=== PATIENT | male | born 1955 | race Caucasian/White ===

== ENCOUNTER 2018-10-09 07:13 | Inpatient (IN) ==
--- NOTE | 2018-09-10 12:11 | Anesthesiology Consultation ---
Date of Service September 10, 2018 Assessment & Plan (1) Encounter for pre-operative examination: - Cardio: 10/01/18: S/P "negative" stress test. "No cardiac contraindication to proceeding on with the planned total left knee replacement. 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 Chart Review Chart Review: Acceptable Risk for Surgery and Patient seen in Pre Admission Testing Teaching & Discussion Pre-Anesthesia Teaching/Discussion Notes: Instructed NPO after midnight before surgery,except medications with 15 cc of water. Medication instructions provided according to the PAT guidelines. History Surgery Operation Date: 10/09/18 09:20 Proposed Procedures p Left Total Knee Arthroplasty - Kashmir Viera MD Height/Weight Height: 5 ft 11 in Weight: 136.1 kg Allergies Allergy/AdvReac Type Severity Reaction Status Date / Time No Known Drug Allergies Allergy Verified 09/02/18 14:07 Medications Home Medications Medication Instructions Recorded Confirmed Last Taken aspirin [Aspir-81] 81 mg PO DAILY 02/18/18 09/02/18 09/02/18 cetirizine [Zyrtec] 10 mg PO QAM 02/18/18 09/02/18 09/02/18 cholecalciferol (vitamin D3) 2,000 unit PO QAM 02/18/18 09/02/18 09/02/18 [Vitamin D3] clopidogrel [Plavix] 75 mg PO QAM 02/18/18 09/02/18 09/02/18 coQ10 (ubiquinol) 200 mg PO BID 02/18/18 09/02/18 09/02/18 docusate sodium [Stool Softener] 100 mg PO DAILY PRN 02/18/18 09/02/18 1 Week Ago ~02/27/18 glipizide 10 mg PO BID 02/18/18 09/02/18 09/02/18 magnesium oxide 500 mg PO QAM 02/18/18 09/02/18 09/02/18 metformin 1,000 mg PO BID 02/18/18 09/02/18 09/02/18 metoprolol succinate 50 mg PO QAM 02/18/18 09/02/18 09/02/18 omega 1-wom-hvj-fish oil [Fish Oil] 1 tab PO BID 02/18/18 09/02/18 09/02/18 saxagliptin 5 mg PO QAM 02/18/18 09/02/18 09/02/18 simvastatin 40 mg PO QPM 02/18/18 09/02/18 09/01/18 tizanidine 4 mg PO QPM PRN 02/18/18 09/02/18 09/01/18 vitamin B complex-folic acid 1 tab PO QAM 02/18/18 09/02/18 09/02/18 [Super B Maxi Complex] gabapentin 300 mg PO HS 09/02/18 09/02/18 09/01/18 guaifenesin 2 tab PO QAM 09/02/18 09/02/18 09/02/18 hydrochlorothiazide 25 mg PO QAM 09/02/18 09/02/18 09/02/18 lisinopril 40 mg PO QAM 09/02/18 09/02/18 09/02/18 Past Medical History Medical History CAD (coronary artery disease) STENTS X 6 TOTAL; MOST RECENT 02/2017 Diabetes mellitus, type 2 NIDDM Fatty liver Gout Hearing deficit BILAT HEARING AIDES Hyperlipidemia Hypertension Irritable bowel disease Kidney stone Morbid obesity Neuropathy Osteoarthritis Sleep apnea BIPAP 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 Past Surgical History Surgical History History of arthroscopy LEFT KNEE X 2 RT KNEE X 1 History of arthroscopy of right knee History of cardiac cath MULTIPLE; CARDIAC STENTS X 6 TOTAL; MOST RECENT STENT 02/2017 History of cardiac radiofrequency ablation 2006 History of carpal tunnel release RT/LEFT History of colonoscopy History of endoscopic sinus surgery History of tooth extraction Lipoma of back Trigger finger S/P REPAIRS Past Anesthesia History No Family Hx of Anesthesia Complications and Other Patient reports "slow to wake" x 1 episode with right knee surgery in ; no issues with subsequent surgeries/anesthesia. History of PONV No Motion Sickness Screening History of Motion Sickness: No Social History Smoking Status: Former smoker tobacco type: cigarettes and cigars Do You Dip or Chew Tobacco: No Smoking End Date: SOCIAL USE 40+ YEARS AGO Alcohol type: beer Alcohol Intake Frequency Comment: PRIOR WEEKLY USE BUT PATIENT HAS HAD NO ETOH SINCE 05/2018* Hx Substance Use: No substance use type: does not use Exercise / Class Metabolic Activity III < 4 Walking/Shop/Light housework (USES CANE PRN) Review of Systems Patient denies chest pain, shortness of breath, cough, wheezing, palpitations. Physical Exam Vital Signs VITALS BP 135/85 P 78 TEMP 97.9 SP02 97%RA RESP 18 PHYSICAL Full neck and c-spine range of motion. Full TMJ range of motion. 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 Low voltage QRS. Septal infarct (No significant change compared to 01/2017 per cardio*) Chest X-Ray Date: 10/11/17 Findings: + NAD Echocardiogram Date: 09/04/17 EF 55%. No RWMA. LAE. LVH. Sclerotic AV/MV. Mild MT/TI. Stress Test Date: 10/01/18 Type: nuclear (Lexiscan) Normal myocardial perfusion SPECT images without evidence for pharmacologically induced ischemia. LVEF 55%. Cardiac Catheterization Date: 02/23/17 Severe instent restenosis of diagonal branch of LAD. Patent LAD/RPDA stents. LVEF 55%. LAISHA to LAD placed Laboratory Results Blood Type A Positive 09/10/18 12:26 Antibody Screen NEGATIVE 09/10/18 12:26 PT 10.9 Seconds (9.0-12.0) 09/10/18 12:26 INR 1.1 (0.9-1.1) 09/10/18 12:26 APTT 25.2 Seconds (21.0-31.0) 09/10/18 12:26 Urine Color Yellow 09/10/18 Unknown Urine Appearance Clear (Clear) 09/10/18 Unknown Urine pH 5.5 (4.5-7.5) 09/10/18 Unknown Ur Specific [place] 1.011 (1.000-1.030) 09/10/18 Unknown Urine Protein Negative (Negative) 09/10/18 Unknown Urine Glucose (UA) Negative (Negative) 09/10/18 Unknown Urine Ketones Negative (Negative) 09/10/18 Unknown Urine Nitrite Negative (Negative) 09/10/18 Unknown Ur Leukocyte Esterase Negative (Negative) 09/10/18 Unknown 09/02/18 WBC 6.7 H/H 14.8/43.2 PLATELETS 215 SODIUM 138 POTASSIUM 4.2 CHLORIDE 104 CO2 25 BUN 11 CREATININE 0.9 GLUCOSE 156 HGBA1C 7.2%
--- NOTE | 2018-09-10 12:28 | PAT Medication Instructions ---
Medication Instructions Date of Service September 10, 2018 Home Medications aspirin [Aspir-81] 81 mg PO DAILY cetirizine [Zyrtec] 10 mg PO QAM cholecalciferol (vitamin D3) 2,000 unit PO QAM clopidogrel [Plavix] 75 mg PO QAM coQ10 (ubiquinol) 200 mg PO BID docusate sodium [Stool Softener] 100 mg PO DAILY PRN glipizide 10 mg PO BID magnesium oxide 500 mg PO QAM metformin 1,000 mg PO BID metoprolol succinate 50 mg PO QAM omega 3-wcb-fog-fish oil [Fish Oil] 1 tab PO BID saxagliptin 5 mg PO QAM simvastatin 40 mg PO QPM tizanidine 4 mg PO QPM PRN vitamin B complex-folic acid 1 tab PO QAM gabapentin 300 mg PO HS guaifenesin 2 tab PO QAM hydrochlorothiazide 25 mg PO QAM lisinopril 40 mg PO QAM ASK your prescriber and surgeon clopidogrel [Plavix] 75 mg PO QAM (in order for spinal anesthesia, will need to hold Plavix 7 days prior to surgery for spinal anesthesia; please check if this is okay with repair servicer) STOP taking 2 weeks before surgery (or as soon as possible if surgery is within 2 weeks) coQ10 (ubiquinol) 200 mg PO BID omega 4-loh-biv-fish oil [Fish Oil] 1 tab PO BID DO NOT take the morning of surgery cetirizine [Zyrtec] 10 mg PO QAM cholecalciferol (vitamin D3) 2,000 unit PO QAM docusate sodium [Stool Softener] 100 mg PO DAILY PRN glipizide 10 mg PO BID magnesium oxide 500 mg PO QAM metformin 1,000 mg PO BID saxagliptin 5 mg PO QAM vitamin B complex-folic acid 1 tab PO QAM guaifenesin 2 tab PO QAM hydrochlorothiazide 25 mg PO QAM lisinopril 40 mg PO QAM Take morning of surgery With a small sip of water, OTHERWISE NOTHING TO EAT OR DRINK AFTER MIDNIGHT: aspirin [Aspir-81] 81 mg PO DAILY metoprolol succinate 50 mg PO QAM Take evening before surgery docusate sodium [Stool Softener] 100 mg PO DAILY PRN (if needed) glipizide 10 mg PO BID metformin 1,000 mg PO BID simvastatin 40 mg PO QPM tizanidine 4 mg PO QPM PRN (if needed) gabapentin 300 mg PO HS Other Notes If you have any questions please call us at [phone] or [phone] or [phone] or [phone]
[2018-09-10 15:00] LABS: INR 1.1 (0.9-1.1); Partial Thromboplastin Ratio 0.9; Partial Thromboplastin Time 25.2 Seconds (21.0-31.0); Prothrombin Time 10.9 Seconds (9.0-12.0)
[2018-09-10 15:16] LABS: Appearance Urine Clear (Clear); Bilirubin Urine Negative (Negative); Blood Urine Negative (Negative); Color Urine Yellow; Glucose Urine UA Negative (Negative); Ketones Urine Negative (Negative); Leukocyte Esterase Urine Negative (Negative); Nitrite Urine Negative (Negative); Protein Urine Negative (Negative); Specific Gravity Urine 1.011 (1.000-1.030); Urobilinogen Urine Negative (Negative); pH Urine 5.5 (4.5-7.5)
--- NOTE | 2018-10-08 15:06 | History and Physical Report ---
DATE OF ADMISSION: 10/09/2018 CHIEF COMPLAINT: Chronic left knee pain. HISTORY OF PRESENT ILLNESS: This is a 63-year-old male patient of Dr. Viera'evelio complaining of chronic left knee pain, longstanding, now progressively getting worse. The patient has failed conservative treatment including intraarticular injections, the use of anti-inflammatories, the use of bracing, the use of a cane and the use of gabapentin. The patient has increased pain with weightbearing activities and his pain does interfere with his activities of daily living. The patient has been diagnosed with end-stage osteoarthritis per clinical and radiographic exams and wishes to proceed with a left total knee arthroplasty. PAST MEDICAL HISTORY: Hypertension, coronary artery disease, sleep apnea with the use of CPAP, diabetes mellitus, osteoarthritis, spine problems, neck problems, upper back problems, sciatica, obesity, kidney stones, fatty liver disease. SOCIAL HISTORY: Nonsmoker, nondrinker. PAST SURGICAL HISTORY: Right knee surgery and left knee surgery. FAMILY HISTORY: Noncontributory. REVIEW OF SYSTEMS: Chronic left knee pain; otherwise, denies any shortness of breath, chest pain, nausea, vomiting or any other joint complaints. MEDICATIONS: 1. Aspirin 81 mg daily. 2. Plavix 75 mg daily. 3. Saxagliptin 5 mg daily. 4. Guaifenesin 400 mg twice a day. 5. Glipizide 7.5 mg twice a day. 6. Metformin 1000 mg twice a day. 7. Magnesium 500 mg daily. 8. CoQ enzyme 200 mg twice daily. 9. Cetirizine 10 mg daily. 10. Fish oil 1000 mg twice daily. 11. Super B complex daily. 12. Metoprolol 50 mg daily. 13. Lisinopril 30 mg daily. 14. Vitamin D3 2000 international units daily. 15. Simvastatin 40 mg daily. 16. Tizanidine 2-4 mg daily as needed. 17. Hydrochlorothiazide 25 mg daily. 18. Gabapentin 300 mg daily. ALLERGIES: No known drug allergies. PHYSICAL EXAMINATION: GENERAL: Well-developed, well-nourished 63-year-old male in no acute distress. He is alert and oriented x3 and pleasant. HEENT: Normocephalic, atraumatic. Extraocular motions are intact. Pupils are equal, reactive to light. HEART: Regular rate and rhythm, no murmurs. LUNGS: Clear. ABDOMEN: Soft, nontender, bowel sounds present. EXTREMITIES: Left knee has a mild effusion. Limited range of motion of 0-115 with crepitation. The patient has a neutral alignment with a mild effusion. 5/5 strength. NEUROLOGIC: Neurovascularly, he is intact in his left lower extremity. DIAGNOSES: Left knee end-stage osteoarthritis, hypertension, coronary artery disease, sleep apnea with the use of CPAP, diabetes mellitus, osteoarthritis, spine problems, neck problems, upper back problems, sciatica, obesity, kidney stones and fatty liver disease. PLAN: The patient was advised of his diagnosis. Indications, risks, benefits, postop course have all been reviewed. The patient wished to proceed with a left total knee arthroplasty. Necessary consent forms and preoperative testing and clearances will be obtained.
[~2018-10-09 07:13] MED LIST: ACETAMINOPHEN 500 MG TAB PO SCH; BUPIVACAINE 0.5 % 5 MG/1 ML PF 10ML VIAL ONE; BUPIVACAINE LIPOSOME/PF 266 MG, BUPIVACAINE/EPINEPHRINE 50 ML, SODIUM CHLORIDE 0.9% 30 ... INFIL SCH; CEFAZOLIN 3000MG 65 ML IV SCH; CeleBREX 200 MG CAP PO SCH; FAMOTIDINE 20 MG TAB PO SCH; GABAPENTIN 300 MG PO SCH; LR 500ML BOLUS, THEN 15ML/HR IV SCH; ROPIVACAINE 0.5% 5 MG/ML 30 ML VIAL ONE; ROPIVACAINE 0.5% HCL/PF 150 MG, BUPIVACAINE 0.5% MPF 30 ML, EPINEPHrine 30MG/30ML (OR U... INFIL SCH; dexAMETHasone 4 MG TAB PO SCH
[2018-10-09] MEDS ORDERED: fentaNYL citrate 100 MCG/2 ML VIAL ONE (07:53)
[2018-10-09] MEDS ORDERED: PROPOFOL IV EMULSION 10 MG/ML 20 ML VIAL IV ONE (07:53)
[2018-10-09] MEDS ORDERED: MIDAZOLAM HCL 1 MG/ML 2ML VIAL ONE (07:53)
[2018-10-09] MEDS ORDERED: ePHEDrine sulfate 50 MG/ML AMP IV PRN (09:07)
[2018-10-09] MEDS ORDERED: ATROPINE SULFATE 0.1 MG/ML 10ML SYR IV PRN (09:07)
[2018-10-09] MEDS ORDERED: fentaNYL citrate 100 MCG/2 ML VIAL IV PRN (09:07)
[2018-10-09] MEDS ORDERED: ONDANSETRON INJ 2 MG/ML 2 ML VIAL IV PRN ×2 (09:07→13:44)
--- NOTE | 2018-10-09 09:11 | History & Physical Bridge Note ---
Date of Service October 09, 2018 History & Physical Bridge Note I have examined the patient, reviewed the History & Physical and in the interval since the performance of the History & Physical I have noted the following changes of clinical significance: no changes noted
[2018-10-09] MEDS ORDERED: POVIDONE-IODINE OP SOLN 30 ML BTL ONE (09:20)
[2018-10-09] MEDS ORDERED: BACITRACIN INJ 50,000 UNIT VIAL ONE (09:20)
[2018-10-09] MEDS ORDERED: ORTHO JOINT ANESTHETIC ONE (09:20)
[2018-10-09] MEDS ORDERED: ONDANSETRON INJ 2 MG/ML 2 ML VIAL ONE (10:49)
--- NOTE | 2018-10-09 11:57 | Post Operative Brief Note ---
Immediate Post Op Note v1 Date of Surgery October 09, 2018 Pre & Post Diagnosis Operation Date: 10/09/18 09:20 Pre-Op Diagnosis: LEFT KNEE OSTEOARTHRITIS Post-Op Diagnosis: LEFT KNEE OSTEOARTHRITIS Procedure Operation Date: 10/09/18 09:20 Actual Procedures p Left Total Knee Arthroplasty(Left) - Kashmir Viera MD Surgeon Kashmir Viera MD Foster Winder Brian TURNER Estimated Blood Loss 5 Findings Consistent with Post-Op Diagnosis Specimens Bone cuts Drains Hemovac Drain Anesthesia Type General Regional Complications none Disposition Accompanied Patient To Recovery: No Disposition: Recovery Room Overlapping Procedure I was present for: the critical portions of procedure.
--- NOTE | 2018-10-09 12:18 | Operative Report ---
Post Operative Report Pre & Post Diagnosis Operation Date: 10/09/18 09:20 Pre-Op Diagnosis: LEFT KNEE OSTEOARTHRITIS Post-Op Diagnosis: LEFT KNEE OSTEOARTHRITIS Procedure Operation Date: 10/09/18 09:20 Actual Procedures p Left Total Knee Arthroplasty(Left) - Kashmir Viera MD Surgeon Kashmir Viera MD Machine Cell Tuber Brian TURNER Estimated Blood Loss 5 Findings Consistent with Post-Op Diagnosis Specimens Bone cuts Drains 2 Hemovac Anesthesia Type General Complications none Disposition Accompanied Patient To Recovery: No Disposition: Recovery Room Indications 63-year-old male with chronic left knee pain failed conservative management including injections ,bracing,therapy, knee arthroscopy. At the time of knee arthroscopy was noted that he had grade 4 DJD of the central lateral patella and grade 4 DJD of the lateral femoral condyle so he is [id number] in flexion. Description of Procedure Patient taken to the operating room placed supine on the operating table and anesthetized under spinal anesthesia initially the patient felt like he was short of breath and although he was oxygenating satisfactorily it was decided because he was anxious to place an LMA and placement of general anesthesia.. Exam under anesthesia demonstrated patellofemoral crepitation full range of motion. Patient had a lateral patellar tilt and a tight lateral retinaculum A pneumatic tourniquet was placed about the thigh of the left lower extremity. The left lower extremity was prepped and draped in usual fashion. Leg was elevated exsanguinated with an Esmarch bandage and the pneumatic was raised to 350 mm mercury. An anterior incision was made across the left knee. The skin was incised longitudinally subcutaneous flaps were elevated and an incision was made through the medial retinaculum extending up into the mid third of the quadriceps tendon and extended down to the medial tibial tubercle. Intra- articular findings demonstrated grade 4 patellofemoral DJD large grade 4 lesion central patella with a large grade 4 lesion on the lateral femoral condyle lateral aspect toward the flexion surface of the knee in the patellofemoral trochlear groove. The knee was exposed by excising the infrapatellar fat pad, excising the meniscal remnants and cruciate ligaments or remnants of the ligaments. Any inflamed synovial tissue was resected. The fat pad over the anterior femur was resected for placement of the component in that area. The lateral synovial bands were release. Appropriate releases were performed to balance ligaments. The femur was exposed. The custom femoral cutting block was pinned in position. The distal femoral cutting block was applied. The distal femoral cut was made with the oscillating saw. The size 11 4-in-1 cutting block was placed. The anterior and posterior chamfer cuts were made. The knee was extended and a subperiosteal peel lateral release was performed around the patella. The patella width was measured and width was reproduced using freehand cut technique. The 38 millimeter symmetrical patella was used. 3 drill holes are made for the pegs. The tibia was exposed. A custom tibial cutting block was positioned and drill holes were made for the cutting guide. It was felt that the PSI guide did not reproduce patient's posterior slope satisfactorily and was in slight varus so an external tibial cutting guide was placed and the proximal cut was made with the oscillating saw. All osteophytes were resected. The lamina robotics technologist was used to assess ligamentous balance and the ligaments were balanced in extension and flexion. The tibia was reexposed and measured for a size G tibial component. This was externally rotated in line with the tibial tubercle and the fixation pins were drilled. The proximal tibia was fashioned with the drill and punch. The size 11 CR femoral trial was inserted. The trial MC inserts were used. The 11 mm insert gave balanced ligaments through full range of motion. The patella tracked laterally so I had to do a formal lateral release leaving the synovium intact which allowed the patella tracked completely centrally. the trials were removed. The orthomix anesthetic cocktail was injected per protocol. The knee was then copiously irrigated with pulsatile lavage antibiotic solution with bacitracin. The final components were cemented with Simplex cement. The final components were Josette persona left CR size 11 standard femur, G tibia, MC 11 mm polyethylene insert. 38 x 9.5 mm patella symmetrical. While the cement cured with the knee in full extension the Betadine soak was used per protocol. After the cement cured, the knee joint was copiously irrigated with antibiotic solution with bacitracin. 2 drains were brought out laterally and connected to a Hemovac. The quadriceps tendon and medial retinaculum were closed with interrupted [id number] #1 Vicryl sutures. The knee was taken through a full range of motion and repair was secure. The subcutaneous tissues were closed with 2-0 Vicryl sutures and skin was closed with jose. Sterile dressings were applied and the patient tolerated the procedure well. Brian TURNER my physician accounting administrative assistant, assisted in soft tissue retraction instrument management leg positioning the closure and will participate in the postoperative care of the patient. I attest to the content of the Intraoperative Record and any orders documented therein. Any exceptions are noted below.
--- NOTE | 2018-10-09 13:07 | Anesthesiology Progress Note ---
Date of Service October 09, 2018 Anesthesia Post Procedure Vital Signs Vital Signs: Temp Pulse Resp BP Pulse Ox 10/09/18 13:00 81 18 140/73 97 10/09/18 12:50 78 18 145/66 H 96 10/09/18 12:40 70 18 141/73 H 98 10/09/18 12:30 91 H 18 116/81 98 10/09/18 12:23 36.3 C L 93 H 18 144/81 H 98 10/09/18 08:02 36.8 C 62 20 163/92 H 98 Pain Intensity Left Shoulder: Pain Intensity: 5 Left Knee: Pain Intensity: 5 Transfer of Care Handoff Completed per policy Notes Mental Status: alert / awake / arousable and participated in evaluation Patient Amnestic to Procedure: Yes Nausea / Vomiting: adequately controlled Pain: adequately controlled Airway Patency, RR, SpO2: stable & adequate BP & HR: stable & adequate Hydration State: stable & adequate Neuraxial Anesthesia: was administered and sensory block is resolving Anesthetic Complications: no major complications apparent and Pt Satisfied with anesthetic care Notes: BG high in PACU, but patient is insulin naive (normally on metformin and glipizide). Hospitalist is consulted to assist with medical management of patient on floor. Will hold off on starting insulin and allow hospitalist to assess the patient first.
[2018-10-09] MEDS ORDERED: NALOXONE HCL 0.4 MG/1 ML VIAL/CARP IV PRN (13:44)
[2018-10-09] MEDS ORDERED: HYDROmorphone INJ 0.5 MG/0.5 ML SYR IV PRN (13:44)
[2018-10-09] MEDS ORDERED: BISACODYL 10 MG SUPP PR PRN (13:44)
[2018-10-09] MEDS ORDERED: SODIUM CHLORIDE 0.9% 1000ML 1,000 ML IV SCH (13:44)
[2018-10-09] MEDS ORDERED: OXYCODONE HCL IR 5 MG TAB (IMMEDIATE RELEASE) PO PRN (13:44)
[2018-10-09] MEDS ORDERED: NON-FORMULARY MEDICATION (Docusate Sodium [Stool Softener] 100 MG) PO PRN (13:44)
[2018-10-09] MEDS ORDERED: TIZANIDINE HCL 4 MG TABLET PO PRN (13:44)
[2018-10-09] MEDS ORDERED: MAGNESIUM HYDROXIDE SUSP 30 ML UDC PO PRN (13:44)
--- NOTE | 2018-10-09 14:05 | XRay Report ---
LEFT KNEE 2 VIEWS History: Left total knee arthroplasty. Degenerative arthritis. Postop. FINDINGS: The patient is status post a left total knee arthroplasty. The hardware is intact. No fract ure or dislocation. Skin jose and surgical drains are in place. IMPRESSION: Left total knee arthroplasty. No evidence for hardware complication. Electronically signed by: Demarcus Burgos M.D. 10/09/2018 2:03 PM
[2018-10-09] MEDS ORDERED: PHARMACY GLYCEMIC MGMT CONSULT PRN (14:11)
[2018-10-09] MEDS ORDERED: CARBOHYDRATES FOR HYPOGLYCEMIA PO PRN (14:30)
[2018-10-09] MEDS ORDERED: DEXTROSE 50% 50 ML SYRINGE IV PRN (14:30)
[2018-10-09] MEDS ORDERED: GLUCOSE 40% GEL 15 GM TUBE PO PRN (14:30)
[2018-10-09] MEDS ORDERED: GLUCOSE 10 TABS/TUBE PO PRN (14:30)
[2018-10-09] MEDS ORDERED: INSULIN HUMAN NPH SC ONE (14:30)
[2018-10-09] MEDS ORDERED: GLUCAGON FOR INJ 1 MG VIAL IM PRN (14:30)
--- NOTE | 2018-10-09 14:35 | Pharmacy Report ---
Glycemic Control Consultation - Date of Service October 09, 2018 - Scope Scope: Glycemic Pharmacist consulted by Dr Sowmya Walls PACarolinaC on 10/09/18 for glycemic control and to write orders per [facility] inpatient glycemic control protocol - Objective Weight: 135.8 kg Accuchecks BSG (last 24hrs): 10/09/18 10/09/18 08:27 12:28 POC Glucose 124 H 200 H HbA1c: None in EMR - Recent Pertinent Medications Outpatient Anti-diabetic Regimen: * Glipizide 10mg PO BIDM * Metformin 1,000mg PO BIDM * Saxagliptin 5mg PO QAM Risk Factors for Insulin Resistance: * Steroids: Dexamethasone 8mg PO Preop x 1 * Recent Surgery * Diet - Assessment & Plan Assessment & Plan: ASSESSMENT: * 63yo T2DM male with unknown degree of outpatient control * Pt is maintained on oral antidiabetic agents as an outpatient * Oral agents are not recommended for inpatient use d/t drug interactions, changing PO intake, and difficulty titrating for acute hyper/hypoglycemia. ADA recommends re-initiating outpatient oral agents 1-2 days prior to discharge if/when appropriate if they were held on admission. * Will hold oral agents for admission and utilize SQ basal bolus insulin regimen which is the recommended regimen for inpatient glycemic control. * Will initiate weight based insulin dosing for insulin ubaldo patient and titrate based on BSG trends. * Will start with moderate/severe stress for high dose steroids given preop and adjust dosing based on BSG trends * Goal is to maintain BSGs <200 mg/dl (ideally <150 mg/dl) to prevent post-op infectious complications PLAN FOR INPATIENT GLYCEMIC CONTROL: * Holding outpatient oral diabetes medications * Basal insulin * NPH 30 units SQ x 1 now (~0.3 units/kg Adj BW since we are giving insulin late) * Then, NPH BID based on BSG * BSG below 140 mg/dl --> 12 units * BSG 140-180mg/dl --> 23 units * BSG above 180 mg/dl --> 34 units * Bolus insulin * NovoLog per scale ACHS or Q6hrs while NPO * Goal Range: Low 110 mg/dL - High 140 mg/dL * Correction Factor: 15 mg/dL/unit * Nutritional / Prandial insulin per carb ratio of 1 unit per 5 grams CHO consumed * A1c with AM labs 10/10/18 * Please note that the plan above was derived based on current level of insulin resistance and hospital stress. These recommendations are appropriate for inpatient admission only. Plan of care upon discharge will need to be reassessed to avoid potential outpatient hypo/hyperglycemia. Thank you.
[2018-10-09] MEDS: INSULIN ASPART 100 UNITS/ML 3 ML PEN SC SCH ×4 (15:30→23:36)
--- NOTE | 2018-10-09 17:33 | Consultation ---
Date of Consultation October 09, 2018 Assessment & Plan (1) Status post total left knee replacement: management per ortho including DVT proph, dispo, pain control. agree w/ repeat labs in AM for stability. Present on Admission?: Yes (2) Morbid obesity with BMI of 40.0-44.9, adult: BMI 41.8 Present on Admission?: Yes (3) Essential (primary) hypertension: While awaiting AM labs would hold HCTZ and lisinopril. If Cr is stable in AM resume meds. Present on Admission?: Yes (4) DM w/o complication type II: Pharmacy has been consulted for management. Appreciate their assistance. Present on Admission?: Yes (5) CAD (coronary artery disease): continue asa, plavix, statin, and beta peterson. no ischemic symptoms post-op. Present on Admission?: Yes (6) Hyperlipidemia: cont statin. Present on Admission?: Yes (7) DVT prophylaxis: defer to orthopedics (8) ESE (obstructive sleep apnea): continue home BIPAP. Thank you for the consult. Will follow with you. Present on Admission?: Yes History of Present Illness Requesting Physician: Kashmir Viera MD Reason for Consultation: post-operative medical management Attending Physician: Kashmir Viera MD History of Present Illness 63yo male with CAD s/p 6 stents, morbid obesity with BMI 41, T2DM, multiple sites of OA, ESE and HTN who presented today for elective left TKR by Dr. Viera. I saw the patient post-op on the orthopedic floor and he was resting comfortably. He denied any cp, dyspnea, abd pain, nausea, or emesis. He has had NO ischemic symptoms that remind him of prior CAD symptoms. Allergies Allergy/AdvReac Type Severity Reaction Status Date / Time No Known Drug Allergies Allergy Verified 09/02/18 14:07 Home Medications Home Medications Medication Instructions Recorded Confirmed Type aspirin [Aspir-81] 81 mg PO DAILY 02/18/18 10/09/18 History cetirizine [Zyrtec] 10 mg PO QAM 02/18/18 10/09/18 History cholecalciferol (vitamin D3) 2,000 unit PO QAM 02/18/18 10/09/18 History [Vitamin D3] clopidogrel [Plavix] 75 mg PO QAM 02/18/18 10/09/18 History coQ10 (ubiquinol) 200 mg PO BID 02/18/18 10/09/18 History docusate sodium [Stool Softener] 100 mg PO DAILY PRN 02/18/18 10/09/18 History glipizide 10 mg PO BID 02/18/18 10/09/18 History magnesium oxide 500 mg PO QAM 02/18/18 10/09/18 History metformin 1,000 mg PO BID 02/18/18 10/09/18 History metoprolol succinate 50 mg PO QAM 02/18/18 10/09/18 History omega 3-dnp-mxa-fish oil [Fish Oil] 1 tab PO BID 02/18/18 10/09/18 History saxagliptin 5 mg PO QAM 02/18/18 10/09/18 History simvastatin 40 mg PO QPM 02/18/18 10/09/18 History tizanidine 4 mg PO QPM PRN 02/18/18 10/09/18 History vitamin B complex-folic acid 1 tab PO QAM 02/18/18 10/09/18 History [Super B Maxi Complex] gabapentin 300 mg PO HS 09/02/18 10/09/18 History guaifenesin 2 tab PO QAM 09/02/18 10/09/18 History hydrochlorothiazide 25 mg PO QAM 09/02/18 10/09/18 History lisinopril 40 mg PO QAM 09/02/18 10/09/18 History Patient History Medical History CAD (coronary artery disease) STENTS X 6 TOTAL; MOST RECENT 02/2017 Diabetes mellitus, type 2 NIDDM Fatty liver Gout Hearing deficit BILAT HEARING AIDES Hyperlipidemia Hypertension Irritable bowel disease Kidney stone Morbid obesity Neuropathy Osteoarthritis Sleep apnea 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 S/P CARDIAC ABLATION (2005) Surgical History History of arthroscopy LEFT KNEE X 2 RT KNEE X 1 History of arthroscopy of right knee History of cardiac cath MULTIPLE; CARDIAC STENTS X 6 TOTAL; MOST RECENT STENT 02/2017 History of cardiac radiofrequency ablation 2006 History of carpal tunnel release RT/LEFT History of colonoscopy History of endoscopic sinus surgery History of tooth extraction Lipoma of back Trigger finger S/P REPAIRS Family History Mother Family history of diabetes mellitus Coronary heart disease Father Coronary heart disease Brother Diabetes ESRD (end stage renal disease) from such Brother Coronary heart disease s/p CABG Social History Preferred Language: [place] Communication Ability: Effective Communication Ability Comment: [place] WITHOUT AIDES Registered Mail Clerk Required: No Beliefs That Will Affect Care: Holiness Holiness Beliefs: JUDAISM marital status: Current Living Situation: Spouse current occupational status: retired current occupation: retired from [employer] Other Information That Helps Us Care for You: No Feels Safe at Home: Yes Smoking Status: Former smoker Tobacco Type: cigarettes and cigars Do You Dip or Chew Tobacco: No Smoking End Date: SOCIAL USE 40+ YEARS AGO Second Hand Exposure: No Hx Alcohol Use: No Hx Substance Use: No Review of Systems Constitutional: no fever, no chills, no fatigue, no anorexia and no weight loss Eyes: no worsening vision Ear, Nose, Mouth, Throat: no sore throat and no dysphagia Respiratory: no cough and no dyspnea Cardiovascular: + edema; no chest pain, no orthopnea and no paroxysmal nocturnal dyspnea Gastrointestinal: no abdominal pain, no nausea and no vomiting Genitourinary: no dysuria Musculoskeletal: + joint pain Integumentary: no rash Neurologic: no localized weakness Psychiatric: no depression and no anxiety Endocrine: recent sugars have been high Physical Exam Constitutional: well developed, well nourished and + morbidly obese; no acute distress and not ill appearing Eyes: PERRL ENMT: external ear and nose normal, oropharynx normal Neck: trachea midline, no thyromegaly Respiratory: normal respiratory effort, lungs clear to auscultation Cardiovascular: Rate/Rhythm: regular rate; + abnormal rhythm (extra beats) Heart Sounds: normal S1 and normal S2; no murmur Vessels: posterior tibial pulses present and dorsalis pedis pulses present; no JVD Extremities: + pedal edema (trace b/l) Gastrointestinal (Abdomen): normal bowel sounds, soft, nontender, no hepatosplenomegaly Musculoskeletal: left knee with dressings intact; drain in place Skin: no rashes, warm and dry Neurologic: deep tendon reflexes 2+ bilaterally and moves all extremities Psychiatric: Orientation: alert and oriented x 3 Lymphatic: + cervical lymphadenopathy (? 1.5cm on left?) Results & Data Vital Signs (Past 12 Hours) Vital Signs Temp Pulse Pulse Resp BP Pulse Ox 10/09/18 16:30 36.5 C 76 17 137/83 97 10/09/18 15:26 36.3 C L 77 15 136/72 96 10/09/18 14:45 90 18 114/66 98 10/09/18 14:05 94 H 18 125/77 98 10/09/18 13:30 36.8 C 75 15 142/71 H 97 10/09/18 13:10 36.9 C 81 18 143/73 H 98 10/09/18 13:00 81 18 140/73 97 10/09/18 12:50 78 18 145/66 H 96 10/09/18 12:40 70 18 141/73 H 98 10/09/18 12:30 91 H 18 116/81 98 10/09/18 12:23 36.3 C L 93 H 18 144/81 H 98 10/09/18 08:02 36.8 C 62 20 163/92 H 98 Laboratory Results Laboratory Results - last 24 hr 10/09/18 10/09/18 10/09/18 08:27 12:28 17:04 POC Glucose 124 H 200 H 295 H 10/09/18 20:28 POC Glucose 291 H (1) DM w/o complication type II Diabetes mellitus skilled nursing insulin use: without watermaster use Qualified Code(s): E11.9 - Type 2 diabetes mellitus without complications (2) CAD (coronary artery disease) Coronary Disease-Associated Artery/Lesion type: [place] artery [place] vs. transplanted heart: [place] heart Associated angina: without angina Qualified Code(s): I25.10 - Atherosclerotic heart disease of [place] coronary artery without angina pectoris (3) Hyperlipidemia Hyperlipidemia type: mixed hyperlipidemia Qualified Code(s): E78.2 - Mixed hyperlipidemia
[2018-10-09] MEDS: CEFAZOLIN 2000MG 2,000 MG/15 ML SYR IV SCH (18:44)
[2018-10-09] MEDS: CeleBREX 200 MG CAP PO SCH (21:25)
[2018-10-09] MEDS: GABAPENTIN 300 MG CAP PO SCH (21:25)
[2018-10-09] MEDS: DOCUSATE SODIUM 100 MG CAP PO SCH (21:25)
[2018-10-09] MEDS: SIMVASTATIN 20 MG TAB PO SCH (21:26)
[2018-10-09] MEDS: ACETAMINOPHEN 500 MG TAB PO SCH (21:27)
[2018-10-10] MEDS: CEFAZOLIN 2000MG 2,000 MG/15 ML SYR IV SCH (03:04)
[2018-10-10] MEDS: INSULIN ASPART 100 UNITS/ML 3 ML PEN SC SCH ×5 (03:09→21:26)
[2018-10-10] MEDS: TRAMADOL HCL 50 MG TABLET PO PRN ×3 (03:12→17:31)
[2018-10-10] MEDS: ACETAMINOPHEN 500 MG TAB PO SCH ×3 (05:18→21:29)
[2018-10-10 08:11] LABS: Hematocrit (blood only) 34.6 % (42-52); Hemoglobin 12.5 g/dL (14.0-18.0); Mean Corpuscular Hgb Conc 36.1 g/dL (32-36); Mean Corpuscular Volume 86.5 fL (80-100); Mean Platelet Volume 9.8 fL (7.4-10.4); Platelet Count 196 K/uL (130-400); RDW Coefficient of Variation 12.8 % (11.5-14.5); RDW Standard Deviation 40.5 fL (36.4-46.3); White Blood Count 12.29 K/uL (4.8-10.8)
[2018-10-10 08:49] LABS: BUN Creatinine Ratio 15.4 (10-20); Calcium 8.6 mg/dl (8.5-10.1); Creatinine Clr Calc Pharmacy 96.7 ml/min; Est GFR (African American) 82.4; Est GFR (Non-African American) 71.1; Potassium 3.9 mmol/L (3.5-5.1)
[2018-10-10] MEDS ORDERED: LISINOPRIL 40 MG TAB PO SCH (09:00)
[2018-10-10] MEDS ORDERED: INSULIN HUMAN NPH SC SCH (09:00)
[2018-10-10] MEDS ORDERED: hydroCHLOROthiazide 25 MG TAB PO SCH (09:00)
--- NOTE | 2018-10-10 09:16 | Progress Note ---
DATE: 10/10/2018 SUBJECTIVE: The patient is postop day 1 status post left total knee arthroplasty. Currently, he is sitting up at the bedside in his chair and he is eating breakfast. He states that he is having some neck pain since the surgery, but has not been excruciating and denies radiculopathy. He states that he has arthritis in his neck and has had this for some time now. He denies any left knee pain at this time and pain is controlled with the knee. He denies shortness of breath, chest pain or lightheadedness or nausea and vomiting. He states he has been up and ambulating in the hallways last night and this morning already. He states he is planning on doing outpatient PT. OBJECTIVE: VITAL SIGNS: Show BP 165/80, pulse 79, respirations 18. He was afebrile. EXTREMITIES: Dressings have a little bit of bloody drainage noted on the anterolateral aspect. Calves were soft, nontender. Neurovascularly intact. Toes were mobile. Hemovac drainage was 75 mL from the latest shift. ASSESSMENT: Postop day #1 status post left total knee arthroplasty. PLAN: The patient will be started on PT, OT protocols today, weightbearing as tolerated. Continue DVT prophylaxis with Plavix and aspirin, SCDs and CARRI hose. Continue current pain regimen at this time. Discharge planning: The patient is planning on doing outpatient PT with [place] near [place] upon discharge.
[2018-10-10] MEDS: CeleBREX 200 MG CAP PO SCH ×2 (09:25→21:25)
[2018-10-10] MEDS: DOCUSATE SODIUM 100 MG CAP PO SCH ×2 (09:25→21:25)
[2018-10-10] MEDS: ASPIRIN 81 MG ECTAB PO SCH (09:26)
[2018-10-10] MEDS: MULTIVITAMIN TAB PO SCH (09:26)
[2018-10-10] MEDS: MAGNESIUM OXIDE 400 MG TAB PO SCH (09:26)
[2018-10-10] MEDS: CLOPIDOGREL BISULFATE 75 MG TAB PO SCH (09:27)
[2018-10-10] MEDS: METOPROLOL SUCC 50MG EXT REL TAB PO SCH (09:27)
[2018-10-10] MEDS: guaiFENesin 200 MG TAB PO SCH (09:27)
[2018-10-10] MEDS: CHOLECALCIFEROL 1,000 UNITS TAB PO SCH (09:28)
[2018-10-10] MEDS: VITAMIN B COMPLEX TAB PO SCH (09:28)
[2018-10-10] MEDS: CETIRIZINE HCL 10 MG TABLET PO SCH (09:29)
[2018-10-10 10:33] LABS: Estimated Average Glucose 151 mg/dl; Hemoglobin A1C 6.9 % (4.5-5.6)
[2018-10-10] MEDS ORDERED: LISINOPRIL 40 MG TAB PO ONE (13:45)
[2018-10-10] MEDS ORDERED: ZOLPIDEM TARTRATE 5 MG TAB PO PRN (13:52)
[2018-10-10] MEDS: INSULIN HUMAN NPH SC SCH (18:47)
--- NOTE | 2018-10-10 21:23 | Hospitalist Progress Note ---
Date of Service October 10, 2018 Assessment & Plan (1) Status post total left knee replacement: POD#2 - management per ortho including DVT proph, dispo, pain control. agree w/ repeat labs in AM for stability. (2) Morbid obesity with BMI of 40.0-44.9, adult: BMI 41.8 (3) Essential (primary) hypertension: Cr is stable - resume LOW continue to hold HCTZ follow BPs (4) DM w/o complication type II: Pharmacy has been consulted for management. Appreciate their assistance. Control acceptable. (5) CAD (coronary artery disease): continue asa, plavix, statin, and beta peterson. no ischemic symptoms post-op. (6) Hyperlipidemia: cont statin. (7) ESE (obstructive sleep apnea): continue home BIPAP. (8) Acute blood loss anemia: repeat CBC in am will likely need Fe supplementation (9) Cervical adenopathy: left neck, either 2cm node vs submandibular gland; suspect it is lymph node outpatient f/u will be needed (10) Neck pain: has DJD by history suspect that manipulation during his surgery (for intubation, etc) may have aggravated his chronic neck issues has no radicular symptoms cont tylenol heat etc (11) DVT prophylaxis: defer to orthopedics Subjective main complaint is that of neck pain started post-op denies any numbness or weakness of either arm denies cp, dyspnea no knee pain in left knee ! +flatus no stool Review of Systems Respiratory: no cough and no dyspnea Cardiovascular: no chest pain Gastrointestinal: no abdominal pain, no nausea and no vomiting Physical Exam Constitutional: well developed, well nourished and + morbidly obese; no acute distress ENMT: external ear and nose normal, oropharynx normal Neck: full ROM with rotation and flexion; this reproduces pain over the posterior neck Cardiovascular: RRR, no murmur, no edema Heart Sounds: no murmur Vessels: dorsalis pedis pulses present; no JVD Extremities: normal capillary refill Gastrointestinal (Abdomen): normal bowel sounds, soft, nontender, no hepatosplenomegaly Musculoskeletal: left knee with dressings and drain in place Psychiatric: A+Ox3, euthymic affect Results & Data Vital Signs (Past 12 Hours) Vital Signs Temp Pulse Resp BP Pulse Ox 10/10/18 15:17 36.4 C L 59 L 16 97/59 L 98 10/10/18 14:34 131/73 10/10/18 12:52 36.7 C 70 16 172/71 H 97 Laboratory Results Laboratory Results - last 24 hr 10/09/18 10/10/18 10/10/18 23:35 03:07 07:59 WBC RBC Hgb Hct MCV MCH MCHC RDW Std Deviation RDW Coeff of Tre Plt Count MPV Sodium Potassium Chloride Carbon Dioxide Anion Gap BUN Creatinine Est Cr Clr Drug Dosing Est GFR ( Amer) Est GFR (Non-Af Amer) BUN/Creatinine Ratio Glucose POC Glucose 245 H 195 H Estimat Average Glucose 151 Hemoglobin A1c 6.9 H Calcium 10/10/18 10/10/18 10/10/18 07:59 07:59 08:23 WBC 12.29 H RBC 4.00 L Hgb 12.5 L Hct 34.6 L MCV 86.5 MCH 31.3 MCHC 36.1 H RDW Std Deviation 40.5 RDW Coeff of Tre 12.8 Plt Count 196 MPV 9.8 Sodium 136 Potassium 3.9 Chloride 104 Carbon Dioxide 22 Anion Gap 10.0 BUN 17 Creatinine 1.10 Est Cr Clr Drug Dosing 96.7 Est GFR ( Amer) 82.4 Est GFR (Non-Af Amer) 71.1 BUN/Creatinine Ratio 15.4 Glucose 178 H POC Glucose 186 H Estimat Average Glucose Hemoglobin A1c Calcium 8.6 10/10/18 10/10/18 10/10/18 12:37 17:04 20:30 WBC RBC Hgb Hct MCV MCH MCHC RDW Std Deviation RDW Coeff of Tre Plt Count MPV Sodium Potassium Chloride Carbon Dioxide Anion Gap BUN Creatinine Est Cr Clr Drug Dosing Est GFR ( Amer) Est GFR (Non-Af Amer) BUN/Creatinine Ratio Glucose POC Glucose 188 H 158 H 197 H Estimat Average Glucose Hemoglobin A1c Calcium (1) DM w/o complication type II Diabetes mellitus exterminator insulin use: without exterminator use Qualified Code(s): E11.9 - Type 2 diabetes mellitus without complications (2) CAD (coronary artery disease) Associated angina: without angina Coronary Disease-Associated Artery/Lesion type: [place] artery [place] vs. transplanted heart: [place] heart Qualified Code(s): I25.10 - Atherosclerotic heart disease of [place] coronary artery without angina pectoris (3) Hyperlipidemia Hyperlipidemia type: mixed hyperlipidemia Qualified Code(s): E78.2 - Mixed hyperlipidemia
[2018-10-10] MEDS: GABAPENTIN 300 MG CAP PO SCH (21:25)
[2018-10-10] MEDS: SIMVASTATIN 20 MG TAB PO SCH (21:25)
[2018-10-11 05:30] LABS: Hematocrit (blood only) 27.9 % (42-52); Hemoglobin 9.9 g/dL (14.0-18.0); Mean Corpuscular Hgb Conc 35.5 g/dL (32-36); Mean Corpuscular Volume 87.2 fL (80-100); Platelet Count 172 K/uL (130-400); RDW Standard Deviation 41.8 fL (36.4-46.3); White Blood Count 10.36 K/uL (4.8-10.8)
[2018-10-11 06:08] LABS: BUN Creatinine Ratio 19.6 (10-20); Calcium 8.2 mg/dl (8.5-10.1); Creatinine Clr Calc Pharmacy 91.7 ml/min; Est GFR (African American) 77.2; Est GFR (Non-African American) 66.7
[2018-10-11] MEDS: ACETAMINOPHEN 500 MG TAB PO SCH ×2 (06:16→13:48)
[2018-10-11] MEDS: CHOLECALCIFEROL 1,000 UNITS TAB PO SCH (07:22)
[2018-10-11] MEDS: CETIRIZINE HCL 10 MG TABLET PO SCH (07:22)
[2018-10-11] MEDS: ASPIRIN 81 MG ECTAB PO SCH (07:23)
[2018-10-11] MEDS: MAGNESIUM OXIDE 400 MG TAB PO SCH (07:25)
[2018-10-11] MEDS: CeleBREX 200 MG CAP PO SCH (07:26)
[2018-10-11] MEDS: VITAMIN B COMPLEX TAB PO SCH (07:26)
[2018-10-11] MEDS: guaiFENesin 200 MG TAB PO SCH (07:26)
[2018-10-11] MEDS: METOPROLOL SUCC 50MG EXT REL TAB PO SCH (07:27)
[2018-10-11] MEDS: CLOPIDOGREL BISULFATE 75 MG TAB PO SCH (07:27)
[2018-10-11] MEDS: DOCUSATE SODIUM 100 MG CAP PO SCH (07:27)
[2018-10-11] MEDS: MULTIVITAMIN TAB PO SCH (07:29)
[2018-10-11] MEDS: INSULIN HUMAN NPH SC SCH (07:31)
[2018-10-11] MEDS: INSULIN ASPART 100 UNITS/ML 3 ML PEN SC SCH ×2 (07:32→12:36)
--- NOTE | 2018-10-11 09:41 | Progress Note ---
DATE: 10/11/2018 SUBJECTIVE: The patient is postop day 2 status post left total knee arthroplasty. He states that his knee feels great and he still has no pain and is ambulating quite well; however, he does complain of increasing neck pain in the C5-C7 area. He states that the pain has become increased from yesterday and states that range of motion does cause increased pain in the area. He denies any radiculopathy down into the upper extremities and states that the pain is centralized in that one area. OBJECTIVE: On examination of his left knee, [place] dressing is clean, dry and intact and he has minimal drainage in the dressing window. Calves were soft, nontender. Neurovascular is intact. Toes were mobile. On examination of his neck, he has no areas of swelling that I can appreciate on palpation and it is tender on palpation around C5 through C7 areas. He does have range of motion which is somewhat limited due to pain and again denies any numbness, tingling or pain down into the upper extremities. Trust Vault Clerk strengths are equal. ASSESSMENT: 1. Postop day 2 status post left total knee arthroplasty. 2. Cervical neck pain, increasing. PLAN: We will continue PT and OT protocols for his left knee and continue warm K-pad to the neck. With his persistent neck pain , we will go ahead and get a C-spine x-ray. I will contact to have him look at his films. I think that he basically has aggravated his DJD of his cervical spine either through positioning of his head and neck during the procedure and/or positioning of his head and neck postoperatively in the bed that he is sleeping in. We will review his films today and have the spine team look at him as well. REBA
--- NOTE | 2018-10-11 10:02 | XRay Report ---
XR cervical spine 2 or 3V HISTORY: Pain Increasing neck pain COMPARISON: None. FINDINGS: The cervical spine is visualized from C1 through the superior endplate of T1. There is no f racture. No subluxation. Moderate degenerative disc change throughout. Prevertebral soft tissues and the atlantodens interval are intact. IMPRESSION: Moderate degenerative disc change. No acute process. The above report was generated using voice recognition software. It may contain grammatical, syntax or spelling errors. Electronically signed by: Brian Babcock M.D. 10/11/2018 10:00 AM
--- NOTE | 2018-10-11 10:51 | Hospitalist Progress Note ---
Date of Service October 11, 2018 Assessment & Plan (1) Status post total left knee replacement: POD#2 - management per ortho including DVT proph, dispo, pain control. (2) Morbid obesity with BMI of 40.0-44.9, adult: BMI 41.8 (3) Essential (primary) hypertension: Cr is stable BPs controlled can resume all outpatient/chronic meds as previous including HCTZ (4) DM w/o complication type II: Pharmacy managing. Appreciate their assistance. Control acceptable. Resume prior DM regimen. (5) CAD (coronary artery disease): continue asa, plavix, statin, and beta peterson. no ischemic symptoms post-op. (6) Hyperlipidemia: cont statin. (7) ESE (obstructive sleep apnea): continue home BIPAP. (8) Acute blood loss anemia: send home with ferrous sulfate 325mg BID x 2 months. Hb 9.9 today. (9) Cervical adenopathy: left neck, either 2cm node vs submandibular gland; suspect it is lymph node outpatient f/u will be needed I recommended this in his d/c paperwork/instructions (10) Neck pain: suspect that manipulation during his surgery (for intubation, etc) may have aggravated his chronic neck issues has no radicular symptoms cont tylenol heat x-rays today with moderate DJD of all cervical levels spine evaluation/consult pending (11) DVT prophylaxis: defer to orthopedics but using asa/plavix from medical standpoint can d/c home today Subjective patient complains mainly of posterior neck pain hurts to move the neck and rotate it some midline pain but most of it is in the paraspinal musculature continues to deny any radicular symptoms of either arm, weakness of either arm, etc no cp no stark no BM but passing "lots" of flatus Review of Systems Respiratory: no dyspnea and no dyspnea on exertion Cardiovascular: no chest pain Gastrointestinal: no abdominal pain Physical Exam Constitutional: well developed, well nourished and + morbidly obese; no acute distress and not ill appearing ENMT: external ear and nose normal, oropharynx normal Neck: trachea midline, no thyromegaly Respiratory: normal respiratory effort, lungs clear to auscultation Cardiovascular: Rate/Rhythm: regular rate; + abnormal rhythm (extra beats) Heart Sounds: normal S1 and normal S2; no murmur Vessels: posterior tibial pulses present and dorsalis pedis pulses present; no JVD Extremities: normal capillary refill and + pedal edema (trace b/l) Gastrointestinal (Abdomen): normal bowel sounds, soft, nontender, no hepatosplenomegaly Musculoskeletal: neck - mild tenderness to palpation over paraspinal musculature b/l; able to flex, rotate and extend w/ only mild pain Skin: no rashes, warm and dry left knee dressing intact Neurologic: strength 5/5 all muscle groups b/l arms Psychiatric: A+Ox3, euthymic affect Orientation: oriented x 3 Lymphatic: + cervical lymphadenopathy (? 1.5cm on left?) Results & Data Vital Signs (Past 12 Hours) Vital Signs Temp Pulse Pulse Resp BP BP Pulse Ox 10/11/18 08:06 122/70 10/11/18 06:30 36.5 C 56 L 16 127/80 100 10/10/18 23:27 37.1 C 60 16 92/58 L 100 Laboratory Results Laboratory Results - last 24 hr 10/10/18 10/10/18 10/10/18 08:23 12:37 17:04 WBC RBC Hgb Hct MCV MCH MCHC RDW Std Deviation RDW Coeff of Tre Plt Count MPV Sodium Potassium Chloride Carbon Dioxide Anion Gap BUN Creatinine Est Cr Clr Drug Dosing Est GFR ( Amer) Est GFR (Non-Af Amer) BUN/Creatinine Ratio Glucose POC Glucose 186 H 188 H 158 H Calcium 10/10/18 10/11/18 10/11/18 20:30 05:20 05:20 WBC 10.36 RBC 3.20 L Hgb 9.9 L Hct 27.9 L MCV 87.2 MCH 30.9 MCHC 35.5 RDW Std Deviation 41.8 RDW Coeff of Tre 13.0 Plt Count 172 MPV 10.0 Sodium 135 L Potassium Chloride 104 Carbon Dioxide 27 Anion Gap 4.0 BUN 23 H Creatinine 1.16 Est Cr Clr Drug Dosing 91.7 Est GFR ( Amer) 77.2 Est GFR (Non-Af Amer) 66.7 BUN/Creatinine Ratio 19.6 Glucose 111 H POC Glucose 197 H Calcium 8.2 L 10/11/18 10/11/18 06:33 06:34 WBC RBC Hgb Hct MCV MCH MCHC RDW Std Deviation RDW Coeff of Tre Plt Count MPV Sodium Potassium 3.9 Chloride Carbon Dioxide Anion Gap BUN Creatinine Est Cr Clr Drug Dosing Est GFR ( Amer) Est GFR (Non-Af Amer) BUN/Creatinine Ratio Glucose POC Glucose 119 H Calcium (1) DM w/o complication type II Diabetes mellitus terminal manager insulin use: without snf use Qualified Code(s): E11.9 - Type 2 diabetes mellitus without complications (2) CAD (coronary artery disease) Associated angina: without angina Coronary Disease-Associated Artery/Lesion type: [place] artery [place] vs. transplanted heart: [place] heart Qualified C ode(s): I25.10 - Atherosclerotic heart disease of [place] coronary artery without angina pectoris (3) Hyperlipidemia Hyperlipidemia type: mixed hyperlipidemia Qualified Code(s): E78.2 - Mixed hyperlipidemia
--- NOTE | 2018-10-11 12:19 | Pharmacy Report ---
Glycemic Control Progress Note - Date of Service October 11, 2018 - Scope Glycemic Pharmacist consulted for glycemic control to write orders per [facility] inpatient glycemic control protocol. - Objective Accuchecks BSG(last 24 hours):: 10/10/18 10/10/18 10/10/18 08:23 12:37 17:04 Glucose POC Glucose 186 H 188 H 158 H 10/10/18 10/11/18 10/11/18 20:30 05:20 06:33 Glucose 111 H POC Glucose 197 H 119 H 10/11/18 12:04 Glucose POC Glucose 146 H HbA1c:: Hemoglobin A1c 6.9 % (4.5-5.6) H 10/10/18 07:59 - Recent Pertinent Medications The patient is currently receiving: * Basal insulin: NPH 12-34 units twice daily with meals * Correctional Insulin: Novolog Correction per scale ACHS Goal Range: Low 110 mg/dL - High 140 mg/dL Correction Factor: 15 mg/dL/unit * Prandial insulin: Per carb ratio of 1 unit per 4 grams CHO consumed - Outpatient Anti-Diabetic Meds Glipizide 10 mg BIDM Metformin 1000 mg BIDM Saxagliptin 5 mg PO Daily - Assessment & Plan ASSESSMENT: * See progress note from 10/09/18 for more background info, in short: * Pt receiving SQ basal bolus insulin regimen for hyperglycemia secondary to baseline DM (outpatient regimen on hold) and POD 2 for L knee surgery (did receive dexamethasone 8 mg preop) * Patient is currently receiving an average of 113 units of insulin per day * 57 units of basal insulin * 56 units of prandial/correctional insulin * BSGs ranging 158 - 197 mg/dl over the past 24hrs * Changes needed to insulin regimen: * AM Fasting BSG = 119 mg/dl. This is within goal range for patient based on inpatient targets and co-morbidities. Therefore Basal insulin will be continued. Patient's basal requirements should decrease as effects from steroids wear off. Will allow for a zero dose and remove highest dose of NPH as this is most likely inappropriate right now. * Post-prandial BSGs are in range therefore no changes needed to CF/CR. Expect carbohydrate needs to decrease but continue CR of 4 for right now. * Total daily dose = ? units. Current needs decreasing as steroids "wear off" * Additional notes / comments: restart metformin PLAN FOR INPATIENT GLYCEMIC CONTROL: * Decreasing NPH to 0-23 units SQ BIDM * Continuing correction factor to 15 mg/dl/unit * Continuing carb ratio to 1 unit per 4 grams CHO consumed * Continuing goal range to Low 110 mg/dL - High 140 mg/dL RECOMMENDATIONS FOR DISCHARGE: * Continue current home regimen. * Please note that the plan above was derived based on current level of insulin resistance and hospital stress. These recommendations are appropriate for inpatient admission only. Plan of care upon discharge will need to be reassessed to avoid potential outpatient hypo/hyperglycemia. Thank you.
--- NOTE | 2018-10-11 13:11 | Orthopedic Consultation ---
Date of Consultation October 11, 2018 Assessment & Plan (1) Neck pain: Patient presents with cervicalgia. All of his symptoms seem to be muscular in nature. He is having no radicular complaints or neurologic signs or symptoms. He does not appear to have any type of nuchal rigidity. I would mullins ggest continue with the heat and gentle range of motion. Adding muscle relaxer may also be helpful. We discussed the merits of adding a steroid but with his diabetes we do not postoperative period. From our perspective he is safe for home discharge. If his pain persists he can contact her office to be seen as an outpatient. History of Present Illness Attending Physician: Kashmir Viera MD History of Present Illness Patient is a 63-year-old male who is postop day #2 status post left total knee replacement. Postoperatively he has been experiencing severe neck pain. The pain seems to lessen with heat and back. When he sits up and stands the pain intensifies. All the pain is in the trapezius muscle group bilaterally. He is not having any radiating pain going down his arms. He has not noticed any weakness in the arms or numbness or tingling. He does not have any increased pain in his neck when he brings his knees up towards his chest. He is not photophobic. He is not having any fevers or chills. [place] any other numbness, tingling, or paresthesias. Allergies Allergy/AdvReac Type Severity Reaction Status Date / Time No Known Drug Allergies Allergy Verified 09/02/18 14:07 Home Medications Home Medications Medication Instructions Recorded Confirmed Type aspirin [Aspir-81] 81 mg PO DAILY 02/18/18 10/09/18 History cetirizine [Zyrtec] 10 mg PO QAM 02/18/18 10/09/18 History cholecalciferol (vitamin D3) 2,000 unit PO QAM 02/18/18 10/09/18 History [Vitamin D3] clopidogrel [Plavix] 75 mg PO QAM 02/18/18 10/09/18 History coQ10 (ubiquinol) 200 mg PO BID 02/18/18 10/09/18 History docusate sodium [Stool Softener] 100 mg PO DAILY PRN 02/18/18 10/09/18 History glipizide 10 mg PO BID 02/18/18 10/09/18 History magnesium oxide 500 mg PO QAM 02/18/18 10/09/18 History metformin 1,000 mg PO BID 02/18/18 10/09/18 History metoprolol succinate 50 mg PO QAM 02/18/18 10/09/18 History saxagliptin 5 mg PO QAM 02/18/18 10/09/18 History simvastatin 40 mg PO QPM 02/18/18 10/09/18 History vitamin B complex-folic acid 1 tab PO QAM 02/18/18 10/09/18 History [Super B Maxi Complex] gabapentin 300 mg PO HS 09/02/18 10/09/18 History guaifenesin 2 tab PO QAM 09/02/18 10/09/18 History hydrochlorothiazide 25 mg PO QAM 09/02/18 10/09/18 History lisinopril 40 mg PO QAM 09/02/18 10/09/18 History acetaminophen [Pain Reliever] 1,000 mg PO Q8 14 Days #84 tab 10/11/18 Rx celecoxib [Celebrex] 200 mg PO BID #60 cap 10/11/18 Rx ferrous sulfate 325 mg PO BID #60 tab 10/11/18 Rx oxycodone 5 mg PO Q4H PRN #30 tab 10/11/18 Rx polyethylene glycol 3350 [Miralax] 17 gm PO DAILY #30 ea 10/11/18 Rx sennosides 17.2 mg PO DAILY #30 tab 10/11/18 Rx tizanidine 4 mg PO TID PRN #9 tab 10/11/18 Rx Patient History Medical History CAD (coronary artery disease) STENTS X 6 TOTAL; MOST RECENT 02/2017 Diabetes mellitus, type 2 NIDDM Fatty liver Gout Hearing deficit BILAT HEARING AIDES Hyperlipidemia Hypertension Irritable bowel disease Kidney stone Morbid obesity Neuropathy Osteoarthritis Sleep apnea BIPAP 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 S/P CARDIAC ABLATION (2005) Surgical History History of arthroscopy LEFT KNEE X 2 RT KNEE X 1 History of arthroscopy of right knee History of cardiac cath MULTIPLE; CARDIAC STENTS X 6 TOTAL; MOST RECENT STENT 02/2017 History of cardiac radiofrequency ablation 2006 History of carpal tunnel release RT/LEFT History of colonoscopy History of endoscopic sinus surgery History of tooth extraction Lipoma of back Trigger finger S/P REPAIRS Social History Preferred Language: Divehi Communication Ability: Effective Communication Ability Comment: SHOALWATER WITHOUT AIDES Record Cutter Required: No Beliefs That Will Affect Care: Adventist Adventist Beliefs: CHRISTIANITY marital status: Current Living Situation: Spouse current occupational status: retired current occupation: retired from [employer] Other Information That Helps Us Care for You: No Feels Safe at Home: Yes Smoking Status: Former smoker Tobacco Type: cigarettes and cigars Do You Dip or Chew Tobacco: No Smoking End Date: SOCIAL USE 40+ YEARS AGO Second Hand Exposure: No Hx Alcohol Use: No Hx Substance Use: No Physical Exam Physical Exam: On exam the patient is alert and oriented. He is tender palpation both trapezius muscle groups. The muscle groups themselves are very tight. There is no redness or erythema. The skin is intact with multiple skin tags. His upper extremity motor exam reveals no focal atrophy his strength is 5 out of 5 detailed muscle testing both upper extremities. Sensation is intact to light touch proprioception is also intact. He has negative Tinel's, Higuera's, Phalen signs. He has no nuchal signs. Results & Data Vital Signs (Past 12 Hours) Vital Signs Temp Pulse Pulse Resp BP BP Pulse Ox 10/11/18 12:34 62 18 130/70 10/11/18 08:06 122/70 10/11/18 06:30 36.5 C 56 L 16 127/80 100 Diagnostic Findings Plain films of the cervical spine performed today reveal disc space narrowing at C5-6. There is moderate multilevel spondylosis no evidence of fracture subluxations or instability.
[2018-10-11] MEDS ORDERED: METFORMIN HCL 500 MG TAB PO SCH (17:00)
--- NOTE | 2018-10-22 15:35 | Discharge Summary ---
HISTORY OF PRESENT ILLNESS: This is a 63-year-old male patient of Dr. Viera's complaining of chronic left knee pain, longstanding, now progressively getting worse. The patient failed conservative treatment and elected to proceed with a left total knee arthroplasty. PAST MEDICAL HISTORY: Hypertension, coronary artery disease, sleep apnea with the use of CPAP, diabetes, osteoarthritis, spine problems, neck problems, upper back problems, sciatica, obesity, kidney stones and fatty liver disease. POSTOPERATIVE COURSE: The patient underwent a left total knee arthroplasty on 10/09/2018. He was followed closely with medical consultation, DVT prophylaxis in the form of Plavix and aspirin, physical therapy and pain control. From a knee standpoint, he did very well postoperatively and was discharged home on postoperative day #2. He was getting some cervical neck pain. Spine team was consulted on this. They felt it was muscular in nature and to treat symptomatically and follow up as needed. Otherwise, an uneventful postoperative course. PHYSICAL EXAMINATION: On discharge, left knee dressings were clean, dry and intact. There was no redness or drainage. He had no calf tenderness. Negative Homans sign. Neurologically and neurovascularly, he was intact in his left lower extremity. His toes and ankle were mobile. DIAGNOSES: Status post left total knee arthroplasty, hypertension, coronary artery disease status post sleep apnea with use of CPAP, diabetes mellitus, osteoarthritis, spine problems, neck problems, upper back problems, sciatica, obesity, kidney stones, fatty liver disease. PLAN: The patient will be discharged home with outpatient physical therapy. He will continue his preadmission medications with the addition of pain medications. He will continue his Plavix and aspirin for DVT prophylaxis. He will follow up with Dr. Viera as scheduled as an outpatient.
== END 2018-10-11 15:09 | disposition home or self-care (01) | DRG 470 ==
LOC: ASU 07:13 → 3E 12:33
DX: E11.9 Type 2 diabetes mellitus without complications; Z68.41 Body mass index [BMI] 40.0-44.9, adult; I10 Essential (primary) hypertension; M10.9 Gout, unspecified; M17.12 Unilateral primary osteoarthritis, left knee; Z84.1 Family history of disorders of kidney and ureter; G47.33 Obstructive sleep apnea (adult) (pediatric); M54.2 Cervicalgia; Z79.82 Long term (current) use of aspirin; Z83.3 Family history of diabetes mellitus; E78.5 Hyperlipidemia, unspecified; Z79.84 Long term (current) use of oral hypoglycemic drugs; D62 Acute posthemorrhagic anemia; I25.10 Atherosclerotic heart disease of native coronary artery without angina pectoris; R59.9 Enlarged lymph nodes, unspecified; E66.01 Morbid (severe) obesity due to excess calories; Z82.49 Family history of ischemic heart disease and other diseases of the circulatory system; I45.6 Pre-excitation syndrome